=== PATIENT | female | born 1955 | race Caucasian/White ===

== ENCOUNTER 2019-01-08 05:42 | Inpatient (IN) | payer BC ==
[2018-12-28 15:18] LABS: BASOPHILS % (AUTO) 0.7 % (0-1); EOSINOPHILS # (AUTO) 0.1 X10'3 (0-0.9); EOSINOPHILS % (AUTO) 1.9 % (0-6); LYMPHOCYTES # (AUTO) 1.2 X10'3 (1.1-4.8); LYMPHOCYTES % (AUTO) 20.9 % (21-51); MEAN CORPUSCULAR HGB CONC 33.8 g/dL (33.0-36.5); MEAN CORPUSCULAR VOLUME 88.8 FL (78-98); MEAN PLATELET VOLUME 8.9 FL (7.4-10.4); MONOCYTES # (AUTO) 0.4 X10'3 (0-0.9); MONOCYTES % (AUTO) 6.2 % (2-12); NEUTROPHILS % (AUTO) 70.3 % (42-75); PRE OP HEMOGLOBIN 14.5 g/dL (12.0-16.0); PRE OP PLATELET COUNT 187 X10'3 (140-440); RED BLOOD COUNT 4.85 X10'6 (4.20-5.60); RED CELL DISTRIBUTION WIDTH 13.9 % (11.5-14.5)
[2018-12-28 15:35] LABS: ALBUMIN 3.7 G/DL (3.4-5.0); ALBUMIN/GLOBULIN RATIO 1.1 (1.1-1.5); ALKALINE PHOSPHATASE 90 IU/L (46-116); BLOOD UREA NITROGEN 19 MG/DL (7-18); BUN/CREATININE RATIO 25.7 (6.6-38.0); CALCIUM 9.8 MG/DL (8.5-10.1); CHLORIDE 103 MMOL/L (99-107); CREATININE 0.74 MG/DL (0.40-0.90); PRE OP ALT 21 U/L (30-65); PRE OP ANION GAP 6 (8-16); PRE OP AST 12 U/L (10-37); PRE OP BILIRUB, TOTAL 0.4 MG/DL (0.0-1.0); PRE OP GLUCOSE 99 MG/DL (70-104); PRE OP POTASSIUM 3.9 MMOL/L (3.4-5.1); PRE OP SODIUM 141 MMOL/L (135-145); TOTAL CARBON DIOXIDE 31.9 MMOL/L (24-32); TOTAL PROTEIN 7.2 G/DL (6.4-8.2); eGFR 79 ML/MIN
[2018-12-28 15:45] LABS: CLARITY,URINE CLEAR (Clear); COLOR,URINE YELLOW (Yellow); GLUCOSE, URINE NEGATIVE (Neg); KETONES,URINE NEGATIVE (Neg); LEUKOCYTE ESTERASE ,URINE NEGATIVE (Neg); NITRITES, URINE NEGATIVE (Neg); OCCULT BLOOD,URINE NEGATIVE (Neg); PROTEIN,URINE NEGATIVE (Neg)
[2018-12-28 16:03] LABS: UA COLLECTION TYPE CLN CATCH MIDSTREAM
[~2019-01-08] VITALS: Ht 170.2 cm; Wt 100.4 kg
[2019-01-08] VITALS (21 sets, daily range): BP systolic 105–137; BP diastolic 65–93
[~2019-01-08 05:42] MED LIST: DOCU-148 PO; DOCUMENT DATE & TIME OF BETA-BLOCKER PO ONE; METO-395 PO; OLME5TAB3 PO; POLY17PO10 PO; acetaminophen 325mg tablet PO ONE; celeCOXIB 100mg capsule PO ONE; famotidine 20mg tablet PO ONE; gabapentin 300mg capsule PO ONE; oxyCODONE SR 10mg (sust. release) tab PO ONE; ringers solution, lacted 1,000 ML IV SCH; tranexamic acid inj. 1,500 MG in normal saline 100ml IV soln 100 ML IV ONE
[2019-01-08] MEDS ORDERED: LIDOcaine 1% (10mg/ml) 2ml vial ONE (06:07)
[2019-01-08] MEDS: cefazolin/dext.iso 2gm/100ml 50 ML IV ONE ×2 (06:17→06:28)
[2019-01-08] MEDS ORDERED: ROPIVAcaine 0.5% (5mg/ml) 30ml vial ONE ×2 (06:49→09:01)
[2019-01-08] MEDS ORDERED: bacitracin inj 150,000 UNIT in sodium chloride irrig. sol 3,000 ML IR ONE (07:00)
[2019-01-08] MEDS ORDERED: sevoflurane 250ml liquid IH ONE (07:21)
[2019-01-08] MEDS ORDERED: cloNIDine hcl/PF 100mcg/ml inj ONE (07:22)
[2019-01-08] MEDS ORDERED: tetracaine 1% (10mg/ml) pres. free inj. ONE (07:23)
[2019-01-08] MEDS ORDERED: MIDAZolam 1mg/ml 10ml vial ONE (07:24)
[2019-01-08] MEDS ORDERED: fentaNYL/PF 50MCG/1 ML 2ML syringe ONE (07:25)
[2019-01-08] MEDS ORDERED: ringers solution, lacted 1,000 ML IV SCH (08:57)
[2019-01-08] MEDS ORDERED: meperidine/PF 25mg/ml syringe IV PRN ×2 (09:00)
[2019-01-08] MEDS ORDERED: morphine 4 MG/ML inj SYRINge IV PRN ×2 (09:00)
[2019-01-08] MEDS ORDERED: proCHLORperazine 10 MG/2 ml inj IV PRN (09:00)
[2019-01-08] MEDS ORDERED: ondansetron/PF 4mg/2ml inj IV PRN (09:00)
[2019-01-08] MEDS ORDERED: propofol inj 20 ML IV ONE (09:01)
[2019-01-08] MEDS ORDERED: dexamethasone sod phosphate 4mg/ml inj. ONE (09:02)
[2019-01-08] MEDS ORDERED: diphenhydrAMINE 25mg capsule PO PRN ×2 (09:55)
[2019-01-08] MEDS ORDERED: acetaminophen 325mg tablet PO PRN (09:55)
[2019-01-08] MEDS ORDERED: bisacodyl 10mg suppository rectal RC PRN (09:55)
[2019-01-08] MEDS ORDERED: magnesium hydroxide 30ml (MOM) UD suspension PO PRN (09:55)
[2019-01-08] MEDS ORDERED: HYDROmorphone 1 mg/ml syringe IV PRN (09:55)
--- NOTE | 2019-01-08 10:02 | NUR ---
Received from OR via , accompanied by Anesthesiologist SINGH and report given by Anesthesiolgist. AWAKE IN NO RESP DISTRESS SKIN WARM AND DRY HOB ELEVATED, FOB ELEVATED, RLE WARM PINK GOOD CAP REFILL AND PEDAL PULSES, CO RT KNEE PAIN, RITCHIE SECURED CLEAR YELLOW URINE, HEMOVAC WITH SM SSD. ICE TO RT KNEE. Addendum: 01/08/19 at 1101 by Sabrina Medina RN HEMOVAC AND ICE TO LEFT KNEE NOT RIGHT, PAIN IN LEFT KNEE NOT RIGHT, LLE WARM PINK GOOD CAP REFILL AND PEDAL PULSES
[2019-01-08] MEDS: meperidine/PF 25mg/ml syringe IV PRN ×3 (10:11→10:49)
--- NOTE | 2019-01-08 11:00 | NUR ---
Received report from Rosaura MONTES
--- NOTE | 2019-01-08 11:12 | NUR ---
Report called to receiving nurse. Transferred via BED Belongings . Special Issues communicated to receiving nurse.AWAKE VS WNL DSG DI, ICE TO LEFT KNEE, LLE WARM PINK GOOD CAP REFILL AND PEDAL PULSES. SCDS CONT. RITCHIE QS CLEAR YELLOW URINE, XRAY COMPLETED OF LEFT KNEE. FRIEND MERI IN TO SEE PT. TO ROOM
--- NOTE | 2019-01-08 11:15 | NUR ---
Patient in room, settled and VS started.
[2019-01-08] MEDS: ceFAZolin 1GM/D5W- ADD-VANTAGE 50 ML IV SCH (16:12)
[2019-01-08] MEDS: oxyCODONE/APAP 10/325mg tablet PO PRN ×3 (16:12→20:23)
[2019-01-08] MEDS: potassium cl 20mEq in 1/2 NS 1,000 ML IV SCH (16:12)
[2019-01-08] MEDS: gabapentin 300mg capsule PO SCH ×2 (16:13→20:23)
--- NOTE | 2019-01-08 18:30 | NUR ---
Assumed care pt at this time report from Ramila MONTES.
[2019-01-08] MEDS: ondansetron/PF 4mg/2ml inj IV PRN (18:44)
[2019-01-08] MEDS: sennosides 8.6mg tablet PO SCH (20:23)
[2019-01-08] MEDS: ascorbic acid 500mg tablet PO SCH (20:23)
--- NOTE | 2019-01-08 22:27 | NUR ---
vitals taken at 2040 were actually from 1800.
[2019-01-09] MEDS: ceFAZolin 1GM/D5W- ADD-VANTAGE 50 ML IV SCH (00:09)
[2019-01-09] MEDS: oxyCODONE/APAP 10/325mg tablet PO PRN ×2 (00:09→04:10)
[2019-01-09] MEDS: potassium cl 20mEq in 1/2 NS 1,000 ML IV SCH ×3 (00:10→09:53)
[2019-01-09 03:11] VITALS: BP 112/68
[2019-01-09 06:00] VITALS: BP 122/74
--- NOTE | 2019-01-09 06:15 | NUR ---
Report to Ramila MONTES.
--- NOTE | 2019-01-09 06:30 | NUR ---
Patient in room ORTHO 4024. I have received report from ELISSA MONTES and had the opportunity to ask questions and assume patient care.
[2019-01-09] MEDS: ondansetron/PF 4mg/2ml inj IV PRN (06:35)
[2019-01-09 07:01] LABS: PROTHROMBIN TIME 10.4 SECONDS (9.0-12.0)
[2019-01-09 07:03] LABS: ANION GAP 6 (8-16); CHLORIDE 103 MMOL/L (99-107); POTASSIUM 4.1 MMOL/L (3.5-5.1); SODIUM 138 MMOL/L (135-145); TOTAL CARBON DIOXIDE 28.6 MMOL/L (24-32)
[2019-01-09 07:40] LABS: BASOPHILS % (AUTO) 0.3 % (0-1); EOSINOPHILS % (AUTO) 0.3 % (0-6); HEMATOCRIT 34.3 % (35.0-45.0); HEMOGLOBIN 11.8 g/dl (12.0-16.0); LYMPHOCYTES # (AUTO) 0.6 X10'3 (1.1-4.8); LYMPHOCYTES % (AUTO) 8.5 % (21-51); MEAN CORPUSCULAR HEMOGLOBIN 30.7 PG (27.0-31.0); MEAN CORPUSCULAR HGB CONC 34.5 g/dL (33.0-36.5); MEAN PLATELET VOLUME 9.6 FL (7.4-10.4); MONOCYTES # (AUTO) 0.5 X10'3 (0-0.9); MONOCYTES % (AUTO) 6.8 % (2-12); NEUTROPHILS # (AUTO) 5.9 X10'3 (1.8-7.7); NEUTROPHILS % (AUTO) 84.1 % (42-75); PLATELET COUNT 141 X10'3 (140-440); RED BLOOD COUNT 3.86 X10'6 (4.20-5.60); RED CELL DISTRIBUTION WIDTH 13.6 % (11.5-14.5)
[2019-01-09] MEDS ORDERED: OLMESARTAN MEDOXOMIL PO SCH (08:00)
[2019-01-09] MEDS: losartan 25mg tablet PO SCH (08:00)
[2019-01-09] MEDS: docusate sod 100mg capsule PO SCH (08:00)
[2019-01-09] MEDS: metoprolol succinate 25mg (24-HOUR) SR. Tablet PO SCH (08:00)
[2019-01-09] MEDS: gabapentin 300mg capsule PO SCH ×3 (08:00→20:52)
[2019-01-09] MEDS: ascorbic acid 500mg tablet PO SCH ×2 (08:00→20:52)
[2019-01-09] MEDS: multivitamins, therapeutics tablet PO SCH (08:00)
[2019-01-09 10:00] VITALS: BP 119/72
[2019-01-09] MEDS ORDERED: warfarin 10mg tablet PO ONE (10:00)
[2019-01-09] MEDS: HYDROcodone/acetaminophen 10/325mg tab PO PRN ×3 (10:05→20:52)
[2019-01-09] MEDS: proCHLORperazine 10 MG/2 ml inj IV PRN (10:06)
[2019-01-09 14:00] VITALS: BP 113/71
--- NOTE | 2019-01-09 14:12 | NUR ---
Joint replacement consult: Pt seen by HENRY for written/verbal high protein ed. HENRY reviewed high protein needs for wound healing, immune strength, high protein foods, and protein supplementation options. RD contact information provided in case of further questions. Agrees to irma anguillan yogurt w/ meals, coffee w/ breakfast and lemon gatorade w/ dinner; HENRY d/w dietary. Pt having powerade brought in from home since she prefers compared to gatorade. Addendum: 01/09/19 at [address] Amended: Links added.
--- NOTE | 2019-01-09 17:55 | NUR ---
WALKED PT 300FT W/GAIT BELT AND FWW PT IS A STAND BY ASSIST
--- NOTE | 2019-01-09 18:35 | NUR ---
Report to Luiza MONTES
[2019-01-09] MEDS: sennosides 8.6mg tablet PO SCH (20:52)
[2019-01-09] MEDS: celeCOXIB 100mg capsule PO SCH (20:52)
[2019-01-09 22:00] VITALS: BP 109/79
[2019-01-10] MEDS: HYDROcodone/acetaminophen 10/325mg tab PO PRN ×3 (05:43→20:17)
[2019-01-10] MEDS: proCHLORperazine 10 MG/2 ml inj IV PRN (05:43)
[2019-01-10] MEDS: potassium cl 20mEq in 1/2 NS 1,000 ML IV SCH (06:00)
[2019-01-10 06:15] LABS: BASOPHILS % (AUTO) 0.3 % (0-1); EOSINOPHILS # (AUTO) 0.1 X10'3 (0-0.9); EOSINOPHILS % (AUTO) 1.8 % (0-6); HEMATOCRIT 34.8 % (35.0-45.0); HEMOGLOBIN 11.8 g/dl (12.0-16.0); LYMPHOCYTES # (AUTO) 0.6 X10'3 (1.1-4.8); LYMPHOCYTES % (AUTO) 10.6 % (21-51); MEAN CORPUSCULAR HEMOGLOBIN 30.2 PG (27.0-31.0); MEAN CORPUSCULAR HGB CONC 33.9 g/dL (33.0-36.5); MEAN CORPUSCULAR VOLUME 89.1 FL (78-98); MEAN PLATELET VOLUME 8.8 FL (7.4-10.4); MONOCYTES # (AUTO) 0.4 X10'3 (0-0.9); MONOCYTES % (AUTO) 7.2 % (2-12); NEUTROPHILS # (AUTO) 4.6 X10'3 (1.8-7.7); NEUTROPHILS % (AUTO) 80.1 % (42-75); PLATELET COUNT 131 X10'3 (140-440); RED CELL DISTRIBUTION WIDTH 13.7 % (11.5-14.5); WHITE BLOOD COUNT 5.8 X10'3 (4.5-11.0)
--- NOTE | 2019-01-10 06:22 | NUR ---
REPORT GIVEN TO SIMON MIRZA.
[2019-01-10 06:31] LABS: INR 1.2 INR; PROTHROMBIN TIME 11.9 SECONDS (9.0-12.0)
[2019-01-10 08:27] VITALS: BP 121/81
[2019-01-10] MEDS: multivitamins, therapeutics tablet PO SCH (09:05)
[2019-01-10] MEDS: celeCOXIB 100mg capsule PO SCH ×2 (09:06→20:16)
[2019-01-10] MEDS: docusate sod 100mg capsule PO SCH (09:06)
[2019-01-10] MEDS: gabapentin 300mg capsule PO SCH ×3 (09:06→20:16)
[2019-01-10] MEDS: losartan 25mg tablet PO SCH (09:06)
[2019-01-10] MEDS: ascorbic acid 500mg tablet PO SCH ×2 (09:06→20:16)
[2019-01-10] MEDS: metoprolol succinate 25mg (24-HOUR) SR. Tablet PO SCH (09:09)
[2019-01-10] MEDS ORDERED: acetaminophen 325mg tablet PO PRN (09:55)
[2019-01-10] MEDS ORDERED: warfarin 10mg tablet PO ONE (10:00)
--- NOTE | 2019-01-10 11:27 | NUR ---
Student documentation: I have reviewed all interventions, assessments performed and documented by Isabel Huerta. Student Medication Administration: For this medication-pass time frame, all medication were reviewed, dispensed, administered and documented per hospital policy by Isabel Huerta.
[2019-01-10 11:28] VITALS: BP 110/80
[2019-01-10 13:18] VITALS: BP 113/72
--- NOTE | 2019-01-10 14:03 | NUR ---
Student documentation: I have reviewed and agree with all interventions, assessments performed and documented by Noemí Jung
[2019-01-10] MEDS: sennosides 8.6mg tablet PO SCH (20:16)
--- NOTE | 2019-01-10 20:38 | NUR ---
REPORT REC'D FROM SIMON MIRZA.
[2019-01-10 22:00] VITALS: BP 110/73
[2019-01-11] MEDS: HYDROcodone/acetaminophen 10/325mg tab PO PRN ×2 (03:46→09:14)
[2019-01-11 06:00] VITALS: BP 126/84
[2019-01-11] MEDS ORDERED: HYDR-3972 PO (06:17)
[2019-01-11] MEDS ORDERED: ASPI-1264 PO (06:17)
[2019-01-11] MEDS ORDERED: SENN-173 PO (06:24)
--- NOTE | 2019-01-11 06:30 | NUR ---
Patient in room ORTHO 4024. I have received report from Luiza MONTES and had the opportunity to ask questions and assume patient care.
--- NOTE | 2019-01-11 06:34 | NUR ---
REPORT GIVEN TO SIMON PEARL. Addendum: 01/11/19 at 0635 by Luiza Ledesma RN DISREGARD LAST NOTE, REPORT GIVEN TO SIMON CHRISTIANSEN.
[2019-01-11 06:44] LABS: BASOPHILS % (AUTO) 0.6 % (0-1); EOSINOPHILS # (AUTO) 0.2 X10'3 (0-0.9); HEMATOCRIT 32.2 % (35.0-45.0); HEMOGLOBIN 11.2 g/dl (12.0-16.0); LYMPHOCYTES # (AUTO) 0.9 X10'3 (1.1-4.8); LYMPHOCYTES % (AUTO) 17.7 % (21-51); MEAN CORPUSCULAR HEMOGLOBIN 30.7 PG (27.0-31.0); MEAN CORPUSCULAR HGB CONC 34.6 g/dL (33.0-36.5); MEAN CORPUSCULAR VOLUME 88.6 FL (78-98); MEAN PLATELET VOLUME 9.1 FL (7.4-10.4); MONOCYTES # (AUTO) 0.4 X10'3 (0-0.9); MONOCYTES % (AUTO) 7.8 % (2-12); NEUTROPHILS # (AUTO) 3.8 X10'3 (1.8-7.7); NEUTROPHILS % (AUTO) 70.9 % (42-75); PLATELET COUNT 141 X10'3 (140-440); RED BLOOD COUNT 3.64 X10'6 (4.20-5.60); WHITE BLOOD COUNT 5.3 X10'3 (4.5-11.0)
[2019-01-11 06:49] LABS: INR 1.4 INR; PROTHROMBIN TIME 14.3 SECONDS (9.0-12.0)
[2019-01-11] MEDS: ascorbic acid 500mg tablet PO SCH (09:07)
[2019-01-11] MEDS: multivitamins, therapeutics tablet PO SCH (09:08)
[2019-01-11] MEDS: celeCOXIB 100mg capsule PO SCH (09:08)
[2019-01-11] MEDS: losartan 25mg tablet PO SCH (09:09)
[2019-01-11] MEDS: gabapentin 300mg capsule PO SCH (09:10)
[2019-01-11] MEDS: docusate sod 100mg capsule PO SCH (09:10)
[2019-01-11] MEDS: metoprolol succinate 25mg (24-HOUR) SR. Tablet PO SCH (09:11)
[2019-01-11 09:18] VITALS: BP 130/93
--- NOTE | 2019-01-11 09:37 | NUR ---
PAGER ID: [phone] MESSAGE: Elicia shah, #[id number], Mrs. Rick rm [id number], BP was 80/42, lows in that range multiple times, please advise thank you Addendum: 01/11/19 at 0938 by Elicia Soto RN please disregard, copy/paste incorrect place
[2019-01-11] MEDS ORDERED: warfarin 7.5mg tablet PO ONE (10:00)
== END 2019-01-11 11:15 | disposition home health service (06) | DRG 470 ==
LOC: PAS IN 05:42 → EDSTATUS 07:30 → ORTHO 4S 11:00
PROVIDERS: ADMIT Specialist; ATTEND Specialist
PROC: 3E0T3BZ Introduction of Anesthetic Agent into Peripheral Nerves and Plexi, Percutaneous Approach (ICD-10-PCS; 2019-01-08)
PROC: 0SRD0J9 Replacement of Left Knee Joint with Synthetic Substitute, Cemented, Open Approach (ICD-10-PCS; principal; 2019-01-08 07:21)
DX: M17.12 Unilateral primary osteoarthritis, left knee (principal); D62 Acute posthemorrhagic anemia; J44.9 Chronic obstructive pulmonary disease, unspecified; I10 Essential (primary) hypertension; I25.10 Atherosclerotic heart disease of native coronary artery without angina pectoris; F41.9 Anxiety disorder, unspecified; Z96.651 Presence of right artificial knee joint; E66.9 Obesity, unspecified; Z87.891 Personal history of nicotine dependence; Z90.710 Acquired absence of both cervix and uterus; Z68.34 Body mass index [BMI] 34.0-34.9, adult; Z79.899 Other long term (current) drug therapy
CPT/HCPCS: 36415; 73560; 80051; 80053; 81003; 82948; 85025; 85610; 85730; 87070; 97110; 97116; 97162; 97530; A6449; A6455; A7000; C1713; C1758; C1776; G0378; J0690; J0735; J0780; J1100; J1170; J2175; J2250; J2405; J2704; J2795; J3010; J3490; J7030; J7120

== ENCOUNTER 2021-02-19 23:15 | Emergency (ER) | payer MEDICARE ==
[~2021-02-19] VITALS: Ht 170.2 cm; Wt 97.3 kg
[~2021-02-19 23:15] MED LIST changes: -DOCUMENT DATE & TIME OF BETA-BLOCKER PO ONE; +HYDR-3972 PO; +SENN-173 PO; -acetaminophen 325mg tablet PO ONE; -celeCOXIB 100mg capsule PO ONE; -famotidine 20mg tablet PO ONE; -gabapentin 300mg capsule PO ONE; -oxyCODONE SR 10mg (sust. release) tab PO ONE; -ringers solution, lacted 1,000 ML IV SCH; -tranexamic acid inj. 1,500 MG in normal saline 100ml IV soln 100 ML IV ONE
[2021-02-19 23:20] VITALS: BP 153/97
[2021-02-19] MEDS ORDERED: cocaine 4% topical solution 4ml bottle MM ONE (23:40)
[2021-02-19] MEDS ORDERED: phenylephrine 0.5% nose drops 15ml NS PRN (23:50)
--- NOTE | 2021-02-19 23:59 | NUR ---
NAHID NESBITT WITH PLACEMENT OF RHINOROCKET INTO LEFT NARE
[2021-02-21] MEDS ORDERED: AMOX-117 PO (00:08)
[2021-02-21] MEDS ORDERED: OLME5TAB6 PO (00:18)
[2021-02-21] MEDS ORDERED: METO-539 PO ×2 (07:43)
== END 2021-02-20 00:58 | disposition home or self-care (01) ==
LOC: ER 23:15
DX: R04.0 Epistaxis (principal); I10 Essential (primary) hypertension; Z90.710 Acquired absence of both cervix and uterus; Z79.899 Other long term (current) drug therapy
CPT/HCPCS: 30901; 99284

== ENCOUNTER 2021-02-20 10:35 | Emergency (ER) | payer MEDICARE ==
[~2021-02-20] VITALS: Ht 170.2 cm; Wt 106.8 kg
[2021-02-20] MEDS ORDERED: LIDOcaine 1% W/epiNEPHrine 1:200,000 10ml vial SQ ONE (10:45)
[2021-02-20] MEDS ORDERED: LIDOcaine 1% W/epiNEPHrine 1:100,000 20ml vial SQ ONE (12:55)
[2021-02-20 14:03] VITALS: BP 129/94
[2021-02-21] MEDS ORDERED: AMOX-117 PO (00:08)
[2021-02-21] MEDS ORDERED: OLME5TAB6 PO (00:18)
[2021-02-21] MEDS ORDERED: METO-539 PO ×2 (07:43)
== END 2021-02-20 14:04 | disposition home or self-care (01) ==
LOC: ER 10:36
DX: R04.0 Epistaxis (principal); I10 Essential (primary) hypertension; Z90.710 Acquired absence of both cervix and uterus; Z79.899 Other long term (current) drug therapy
CPT/HCPCS: 30901; 99284

== ENCOUNTER 2021-02-20 19:32 | Inpatient (IN) | payer MEDICARE ==
[~2021-02-20] VITALS: Ht 170.2 cm; Wt 106.8 kg
--- NOTE | 2021-02-20 19:44 | NUR ---
here for epistaxis since last night. Third visit to ER. Has a rhinorocket in the left nare. States blood coming from R nare. She is holding it.
[2021-02-20] MEDS ORDERED: LIDOcaine 40mg/ml topical solution MM ONE (22:15)
[2021-02-20] MEDS ORDERED: LIDOcaine 4% (40 mg/ml) topical solution 50ml MM ONE (22:20)
[2021-02-20] MEDS ORDERED: acetaminophen 325mg tablet PO ONE (22:40)
[2021-02-20 23:00] LABS: BASOPHILS % (AUTO) 0.3 % (0-1); EOSINOPHILS # (AUTO) 0.1 X10'3 (0-0.9); EOSINOPHILS % (AUTO) 0.8 % (0-6); HEMATOCRIT 42.8 % (35.0-45.0); HEMOGLOBIN 14.1 g/dl (12.0-16.0); LYMPHOCYTES % (AUTO) 11.4 % (21-51); MEAN CORPUSCULAR HEMOGLOBIN 30.2 PG (27.0-31.0); MEAN CORPUSCULAR VOLUME 91.6 FL (78-98); MEAN PLATELET VOLUME 8.7 FL (7.4-10.4); MONOCYTES # (AUTO) 0.5 X10'3 (0-0.9); MONOCYTES % (AUTO) 5.6 % (2-12); NEUTROPHILS # (AUTO) 7.3 X10'3 (1.8-7.7); NEUTROPHILS % (AUTO) 81.9 % (42-75); PLATELET COUNT 178 X10'3 (140-440); RED BLOOD COUNT 4.67 X10'6 (4.20-5.60); RED CELL DISTRIBUTION WIDTH 13.8 % (11.5-14.5); WHITE BLOOD COUNT 8.9 X10'3 (4.5-11.0)
[2021-02-20] MEDS ORDERED: amox tr/potassium clavulanate 875/125mg TAB PO ONE (23:20)
[2021-02-20 23:41] LABS: PARTIAL THROMBOPLASTIN TIME 27 SECONDS (22-32)
[2021-02-21] MEDS ORDERED: AMOX-117 PO (00:08)
[2021-02-21] MEDS ORDERED: ondansetron/PF 4mg/2ml inj IV PRN (00:15)
[2021-02-21] MEDS ORDERED: morphine 2 MG/ML inj. syringe IV PRN ×2 (00:15)
[2021-02-21] MEDS ORDERED: hydrALAZINE 20mg/ml inj. IV PRN (00:15)
[2021-02-21] MEDS ORDERED: normal saline 1000ml 1,000 ML IV SCH (00:15)
[2021-02-21] MEDS ORDERED: acetaminophen 325mg tablet PO PRN (00:15)
[2021-02-21] MEDS ORDERED: HYDROcodone/acetaminophen 10/325mg tab PO PRN (00:15)
[2021-02-21] MEDS ORDERED: bisacodyl 10mg suppository rectal RC PRN (00:15)
[2021-02-21] MEDS ORDERED: diphenhydrAMINE 50 mg/ml inj IV PRN (00:15)
[2021-02-21] MEDS ORDERED: mag hydrox/Alum hydrox/simeth 30ml oral suspension PO PRN (00:15)
[2021-02-21] MEDS ORDERED: magnesium hydroxide 30ml (MOM) UD suspension PO PRN (00:15)
[2021-02-21] MEDS ORDERED: diphenhydrAMINE 25mg capsule PO PRN (00:15)
[2021-02-21] MEDS ORDERED: OLME5TAB6 PO (00:18)
[2021-02-21] MEDS: erythromycin ophthalmic ointment 1gm tube EACHEYE SCH ×3 (02:00→10:33)
--- NOTE | 2021-02-21 02:28 | NUR ---
cleaned her room, gave her water and a pain pill and an ice pack.
--- NOTE | 2021-02-21 05:37 | NUR ---
Pt. moved to ED room 7 and provided with a hospital bed.
--- NOTE | 2021-02-21 06:30 | NUR ---
Pt sleeping. Respirations unlabored. NAD
[2021-02-21] MEDS ORDERED: METO-539 PO ×2 (07:43)
--- NOTE | 2021-02-21 07:45 | NUR ---
Spoke with Dr Cabrera regarding pt's home meds. Pt states that she will not take anything other than what she is already on because they have worked to get the right meds. Also let Dr Cabrera know that the pt is still having slight bleeding around the rhino rockets. He said he is on his way in and will look at the pt's records when he gets here.
[2021-02-21] MEDS ORDERED: docusate sod 100mg capsule PO SCH (08:00)
[2021-02-21] MEDS ORDERED: metoprolol tartrate 50mg tablet PO SCH (08:00)
[2021-02-21] MEDS ORDERED: pantoprazole 40 MG vial IV SCH (08:00)
[2021-02-21] MEDS ORDERED: ampicill/sulbac 1.5gm/NS 100ml 100 ML IV SCH (08:00)
[2021-02-21] MEDS ORDERED: metoprolol succinate 25mg (24-HOUR) SR. Tablet PO SCH ×2 (09:02→21:00)
[2021-02-21 09:08] LABS: BASOPHILS % (AUTO) 0.2 % (0-1); EOSINOPHILS % (AUTO) 0.5 % (0-6); HEMATOCRIT 40.5 % (35.0-45.0); HEMOGLOBIN 13.4 g/dl (12.0-16.0); LYMPHOCYTES # (AUTO) 0.6 X10'3 (1.1-4.8); LYMPHOCYTES % (AUTO) 6.2 % (21-51); MEAN CORPUSCULAR HEMOGLOBIN 30.1 PG (27.0-31.0); MEAN CORPUSCULAR VOLUME 91.2 FL (78-98); MEAN PLATELET VOLUME 8.7 FL (7.4-10.4); MONOCYTES # (AUTO) 0.7 X10'3 (0-0.9); MONOCYTES % (AUTO) 7.2 % (2-12); NEUTROPHILS % (AUTO) 85.9 % (42-75); PLATELET COUNT 164 X10'3 (140-440); RED BLOOD COUNT 4.44 X10'6 (4.20-5.60); RED CELL DISTRIBUTION WIDTH 14.1 % (11.5-14.5); WHITE BLOOD COUNT 9.4 X10'3 (4.5-11.0)
[2021-02-21 09:40] LABS: ALANINE AMINOTRANSFERASE 20 U/L (12-78); ALBUMIN 3.6 G/DL (3.4-5.0); ALBUMIN/GLOBULIN RATIO 1.1 (1.1-1.5); ALKALINE PHOSPHATASE 76 IU/L (46-116); ANION GAP 12 (8-16); ASPARTATE AMINO TRANSFERASE 11 U/L (10-37); BILIRUBIN,TOTAL 0.6 MG/DL (0.1-1.0); BLOOD UREA NITROGEN 13 MG/DL (7-18); BUN/CREATININE RATIO 17.8 (6.6-38.0); CALCIUM 9.2 MG/DL (8.5-10.1); CHLORIDE 105 MMOL/L (99-107); CREATININE 0.73 MG/DL (0.40-0.90); GLUCOSE 122 MG/DL (70-104); POTASSIUM 3.8 MMOL/L (3.5-5.1); SODIUM 144 MMOL/L (135-145); TOTAL CARBON DIOXIDE 27.3 MMOL/L (24-32); TOTAL PROTEIN 6.9 G/DL (6.4-8.2); eGFR 80 ML/MIN
[2021-02-21 10:15] VITALS: BP_DIAS 93
[2021-02-21 10:33] VITALS: BP_SYST 147
--- NOTE | 2021-02-21 10:50 | NUR ---
PATIENT GIVEN AM DOSE OF [place]. TAKES BID AT HOME. ORDERED BID TO START TONIGHT.
[2021-02-21] MEDS ORDERED: iohexol 300mg/ml 100ml inj. ONE (11:02)
--- NOTE | 2021-02-21 12:22 | NUR ---
Pt given Tylenol for the little bit of pain she has from the rhino rockets. Pt denies any further needs at this time and is resting quietly.
--- NOTE | 2021-02-21 13:17 | NUR ---
PER DR PHILLIPS'S REQ CALL TO [facility]SF[facility] TO TRANSFER FOR ENT SERVICES. CALL PLACED. PER DR PHILLIPS PATIENT HAS BEEN ACCEPTED BY DR HENRIQUEZ. CALL TO TRANSFER CENTER. WAITING FOR TRANSFER BACK FORM AND BED.
--- NOTE | 2021-02-21 14:38 | NUR ---
Kiln Door Repairer was in to see pt to have her sign documents for a transfer to [facility]. She will arrange all of the transport and let me know when to call report.
--- NOTE | 2021-02-21 14:38 | NUR ---
CASE MANAGEMENT REPORTS [facility] TRANSPORTATION TO [facility] ETA 1 HR
--- NOTE | 2021-02-21 14:50 | NUR ---
[facility] here to transport patient to [facility]
--- NOTE | 2021-02-21 14:50 | NUR ---
TRANSFER AGREEMENT FAXED TO [facility]. IN TO SPEAK WITH PATIENT IN REGARDS TO TRANSFER AND SHE IS IN AGREEMENT. ALL NECESSARY PAPERWORK SIGNED. [facility] CALLED THEY WILL BE HERE WITHIN THE HOUR. ER NOTIFIED. SPOKE TO [facility] BOX LOADER AND ADVISED HER OF THE TIME.
[2021-02-21] MEDS ORDERED: lactobacillus rhamnosus 10,000 MMU CELLS/CAPSULE PO SCH (20:00)
[2021-02-21] MEDS ORDERED: losartan 25mg tablet PO SCH (20:00)
[2021-02-21] MEDS ORDERED: moxifloxacin 0.5% ophthalmic drops 3ml EACHEYE SCH (20:00)
[2021-02-21] MEDS ORDERED: temazepam 15mg capsule PO PRN (21:00)
== END 2021-02-21 17:50 | disposition short-term general hospital (02) | DRG 153 ==
LOC: ER 19:33 → ED HOLD 02-21 00:15
PROVIDERS: ADMIT Family Medicine; ATTEND Family Medicine
PROC: BN251ZZ Computerized Tomography (CT Scan) of Facial Bones using Low Osmolar Contrast (ICD-10-PCS; principal; 2021-02-21)
DX: J01.20 Acute ethmoidal sinusitis, unspecified (principal); R04.2 Hemoptysis; R04.0 Epistaxis; H10.33 Unspecified acute conjunctivitis, bilateral; Z60.2 Problems related to living alone; I10 Essential (primary) hypertension; Z90.710 Acquired absence of both cervix and uterus
CPT/HCPCS: 30901; 36415; 70487; 71045; 80053; 83036; 85025; 85610; 85730; 86885; 86900; 86901; 93005; 99284; 99285; G0378; J0295; J7030; Q9967